=== PATIENT | male | born 1990 | race African-American/Black ===

== ENCOUNTER 2019-12-10 17:23 | Emergency (ER) | payer SELFPAY ==
--- NOTE | 2019-12-10 17:35 | ED.SKABFB ---
HPI - Skin/Abscess/Foreign Bdy General Chief complaint: Skin/Abscess/Foreign Body Stated complaint: Rash Time Seen by Provider: 12/10/19 17:35 Source: patient and RN notes reviewed History of Present Illness HPI narrative: Patient is a 29-year-old male that presents the urgent care with complaints of dry patchy areas to the right upper arm, right upper back, left leg. Patient states he noticed them approximately 1 month ago and has been putting Vaseline on the areas. Patient states he now has an itchy dry scalp which she says is getting worse. States that it started approximately 2 weeks ago and he has been using [id number] shampoos for dry scalp . Denies any history of eczema or psoriasis. No other acute complaints. No acute distress noted. Patient read the plan of care. Related Data Allergies Allergy/AdvReac Type Severity Reaction Status Date / Time No Known Allergies Allergy Verified 12/10/19 17:41 Review of Systems Review of Systems: Narrative: CONSTITUTIONAL: Denies fever, chills, or sweats. EYES: Denies visual changes, redness, or discharge. ENT: Denies rhinorrhea, congestion, sore throat, or otalgia. CARDIOVASCULAR: Denies chest pain, palpitations, or edema. RESPIRATORY: Denies cough or dyspnea. GASTROINTESTINAL: Denies abdominal pain, nausea, vomiting, or diarrhea. GENITOURINARY: Denies dysuria or hematuria. SKIN: Reports of itchy dry scalp and areas of rash to the left leg, right upper arm, right upper back MUSCULOSKELETAL: Denies back pain, joint pain, or myalgia. NEUROLOGIC: Denies headache, numbness, or weakness. All other systems reviewed are negative, except as documented in HPI. PMFSH Social History Social History Gender identity (if verbalized by the patient): Male Comments At the time of my signature, I reviewed and agree with the nursing past medical, surgical, social, and family history. There is no relevant family history pertinent to the patient complaint. Exam Narrative: Exam Narrative: GENERAL: This is a well-nourished, well-developed patient, in no apparent distress. HEAD: normocephalic, atraumatic. EYES: PERRL. Sclera clear/white. Vision is grossly intact. EARS: External ears normal NOSE: External nose normal with no obvious nasal discharge THROAT: Mucous membranes moist NECK: Neck supple CARDIOVASCULAR: Regular rate and rhythm without murmurs, gallops, or rubs. RESPIRATORY: Clear to auscultation. Breath sounds equal bilaterally. No wheezes, rales, or rhonchi. SKIN: 0.5 to 1 cm diameter areas of dry skin noted to the upper right arm, upper right back, left leg. Notable psoriasis throughout the scalp NEURO: awake, alert, and oriented to person, place and time. There were no obvious focal neurologic abnormalities. EXTREMITIES: No clubbing, cyanosis, or edema. Course Vital Signs Vital signs: Vital Signs Temperature 98.5 F 12/10/19 17:36 Pulse Rate 94 12/10/19 17:36 Respiratory Rate 16 12/10/19 17:36 Blood Pressure 140/82 12/10/19 17:36 Pulse Oximetry 100 12/10/19 17:36 Temperature 98.5 F 12/10/19 17:36 Pulse Rate 94 12/10/19 17:36 Respiratory Rate 16 12/10/19 17:36 Blood Pressure 140/82 12/10/19 17:36 Pulse Oximetry 100 12/10/19 17:36 Reviewed MDM - Skin/Abscess/Foreign Bdy MDM Narrative Medical decision making narrative: Advised the patient to avoid scratching at the scalp. If you are going to be out in cold temperatures make sure to wear a stocking cap to avoid extreme cold to the scalp. Alcohol and stress do tend to make psoriasis and flame. Use prescription shampoo as directed as well as head and shoulders in between prescription shampoo applications. May start shampoo daily for 1 week and then use 2-3 times weekly as directed. Use cream as directed to affected areas, avoiding the face, armpits, groin. If scalp and rash to the skin does not improve it?follow-up with PCP. May need referral to rheumatology or tip stitcher regarding psoria
[2019-12-10 17:36] VITALS: BP 140/82; PULSE 94; RESP 16; TEMP 36.9; O2SAT 100
== END 2019-12-10 17:54 | disposition home or self-care (01) ==
PROVIDERS: Emergency Provider Nurse Practitioner Family
DX: L40.9 Psoriasis, unspecified (principal)
CPT/HCPCS: 99203; G0463

== ENCOUNTER 2020-01-11 03:21 | Emergency (ER) | payer SELFPAY ==
[2020-01-11 03:27] VITALS: BP 165/91; PULSE 89; RESP 20; TEMP 36.7; O2SAT 100
[2020-01-11] MEDS: FLUCONAZOLE 150 MG TABLET PO (04:39)
--- NOTE | 2020-01-11 04:45 | ED.SKABFB ---
HPI - Skin/Abscess/Foreign Bdy General Chief complaint: Skin/Abscess/Foreign Body Stated complaint: RASH Time Seen by Provider: 01/11/20 03:27 Source: patient Mode of arrival: ambulatory Limitations: no limitations History of Present Illness HPI narrative: PAtient states he has had rash to his scalp for weeks and he was started on a shampoo. He states he also had a couple of spots on his left arm. He noticed 2 days ago he develop small bumps to his arms and torso and even his genitals. He denies fever or chills. HE denies nausea or vomiting. He reports some itching. complaint: rash Onset (ago): day(s) Location: chest, back, LUE, RUE and genitals Relieving factors: none Related Data Allergies Allergy/AdvReac Type Severity Reaction Status Date / Time No Known Allergies Allergy Verified 01/11/20 03:26 Review of Systems Review of Systems: Narrative: CONSTITUTIONAL: Denies fever, chills, or sweats. EYES: Denies visual changes, redness, or discharge. ENT: Denies rhinorrhea, congestion, sore throat, or otalgia. CARDIOVASCULAR: Denies chest pain, palpitations, or edema. RESPIRATORY: Denies cough or dyspnea. GASTROINTESTINAL: Denies abdominal pain, nausea, vomiting, or diarrhea. GENITOURINARY: Denies dysuria or hematuria. SKIN: reports rash and itching. MUSCULOSKELETAL: Denies back pain, joint pain, or myalgia. NEUROLOGIC: Denies headache, numbness, or weakness. PSYCHIATRIC: Denies anxiety or depression. [facility] Past Medical History Medical History (Updated 01/12/20 @ 00:00 by Background Daemon) Healthy adult Social History Social History Gender identity (if verbalized by the patient): Male Exam Narrative: Exam Narrative: GENERAL: Well-appearing, well-nourished, and in no acute distress. HEAD: Normocephalic, atraumatic EYES: PERRLA and EOMI, conjunctiva clear without discharge EARS: scaly rash to outer ear NOSE: Nares clear, no rhinorrhea or epistaxis THROAT:Mucous membranes moist, Oropharynx normal without erythema, exudate, peritonsillar swelling or fluctuance NECK: Supple, without lymphadenopathy or mass RESPIRATORY: No respiratory distress, Airway patent, Respirations non-labored, Clear to auscultation without rales, rhonchi or wheeze HEART: Regular rate and rhythm. No murmur heard. Normal peripheral pulses. ABDOMEN: Soft, nontender, nondistended, normal active bowel sounds. No masses. No rebound or guarding, No organomegaly. EXTREMITIES: No edema, normal strength with full range of motion. NEURO: Alert and oriented x3. CN 2-12 grossly intact. No focal deficits. PSYCH: Normal mood and affect. Skin: Rashes: rashes noted (multiple scaly papules to bilateral arms, chest, back with a few larger ) Hair: other (scaly hyperpigmented scaly rash like a cap to entire scalp, well dermarcate) Course Course Emergency Course: Patient presented with rash that appears to be tinea vs pityriasis rosea. It seems less likely secondary syphilis . He denies chancre. Patient with be started on antifungal . I have discussed he will need to follow up with PCP for dermatology referral. Vital Signs Vital signs: Vital Signs Temperature 98.1 F 01/11/20 03:27 Pulse Rate 89 01/11/20 03:27 Respiratory Rate 20 01/11/20 03:27 Blood Pressure 165/91 H 01/11/20 03:27 Pulse Oximetry 100 01/11/20 03:27 Temperature 98.2 F 01/11/20 06:13 Pulse Rate 80 01/11/20 06:13 Respiratory Rate 16 01/11/20 06:13 Blood Pressure 122/64 01/11/20 06:13 Pulse Oximetry 100 01/11/20 06:13 MDM - Skin/Abscess/Foreign Bdy Lab Data Result diagrams: 01/11/20 04:49 Labs: Lab Results 01/11/20 01/11/20 Range/Units 04:49 04:49 Sodium 139 (137-145) mmol/L Potassium 3.8 (3.4-5.0) mmol/L Chloride 104 (98-107) mmol/L Carbon Dioxide 26 (22-30) mmol/L BUN 8 L (9-20) mg/dL Creatinine 1.00 (0.7-1.3) mg/dL Estim Creat Clear Calc Not Reportable Estimated GFR > 60 (59 -
[2020-01-11 05:12] LABS: Alanine Aminotransferase 28 U/L (4-50); Albumin Level 4.4 g/dL (3.5-5.1); Alkaline Phosphatase 112 U/L (38-126); Aspartate Amino Transferase 32 U/L (17-59); Bilirubin,Total 0.4 mg/dL (0.2-1.3); Blood Urea Nitrogen 8 mg/dL (9-20); Calcium 9.1 mg/dL (8.4-10.2); Carbon Dioxide 26 mmol/L (22-30); Chloride 104 mmol/L (98-107); Estimated Glomerular Filt Rate > 60; Glucose 108 mg/dL (75-110); Potassium 3.8 mmol/L (3.4-5.0); Sodium 139 mmol/L (137-145)
[2020-01-11 06:13] VITALS: BP 122/64; PULSE 80; RESP 16; TEMP 36.8; O2SAT 100
[2020-01-13 07:28] LABS: Rapid Plasma Reagin Reactive (NonReactive)
[2020-01-14 15:53] LABS: Treponema pallidum Ab FTA ABS Reactive (Nonreactive)
== END 2020-01-11 06:14 | disposition home or self-care (01) ==
PROVIDERS: Emergency Provider General Practice
DX: B35.4 Tinea corporis (principal); B35.0 Tinea barbae and tinea capitis
CPT/HCPCS: 36415; 80053; 86592; 86780; 99283; A9270